=== PATIENT | female | born 1940 | race Asian ===

== ENCOUNTER 2016-07-05 10:15 | Emergency (ER) | payer OTHER ==
[2016-07-05 10:57] VITALS: BP 145/84; PULSE 60; TEMP 98
[2016-07-05] MEDS ORDERED: ACETAMINOPHEN 325 MG TABLET (FP) PO ONE (12:10)
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
[2016-07-05] MEDS ORDERED: ACETAMINOPHEN 325 MG TABLET (FP) ONE (12:17)
== END 2016-07-05 12:23 | disposition home or self-care (01) ==
LOC: JERFT 10:15
DX: S13.4XXA Sprain of ligaments of cervical spine, initial encounter (principal); I10 Essential (primary) hypertension; V53.6XXA Passenger in pick-up truck or van injured in collision with car, pick-up truck or van in traffic accident, initial encounter; Y92.414 Local residential or business street as the place of occurrence of the external cause; Y93.89 Activity, other specified
CPT/HCPCS: 99281-25

== ENCOUNTER 2016-10-14 07:59 | Inpatient (IN) | payer OTHER ==
[2016-10-14 08:36] VITALS: BMI 28.3
[2016-10-14] MEDS ORDERED: ACETAMINOPHEN 325 MG TABLET (FP) PO ONE (09:12)
[2016-10-14] MEDS ORDERED: ALBUTEROL SO4 2.5/IPRATROPIUM 0.5 INH SOL 3 ML VIAL.NEB. NEB ONE ×4 (09:15→15:26)
--- NOTE | 2016-10-14 09:15 | PDOC ---
History of Present Illness - General Chief Complaint: Respiratory Stated Complaint: COLD SYMPTOMS Time Seen by Provider: 10/14/16 08:28 History Source: Patient Exam Limitations: No Limitations - History of Present Illness Initial Comments: 10/14/16 11:5 My Chief Complaint: nasal congestion, runny nose, cough, intermittent shortness of breath History of Present Illness: Pt. is a 76 y/o female with h/o glaucoma, htn, and hyyperlipidemia brought here by EMS due to nasal congestion with productive cough for pt. is unsure of time but thinks it is over one week. She also report some shortness of breath with ambulation. Patient denies any sore throat. Patient denies any other symptoms at this time. Patient is Romansh speaking only have to use medical interpreter line medical interpreter [id number]. Patient is difficult to use the translation line due to patient having hearing loss even with hearing aid in left ear. Patient did not answer questions appropriately. Patient's daughter came patient's daughter explained that she was not confused just cannot hear well. PMX: glaucoma, hyperlipidemia, glaucoma, hearing loss hearing aid left ear Family Hx: not know Social Hx: lives alone, family is involved, daughter Angie Ge [phone] was here earlier Surgical Hx: none known by daughter 10/14/16 12:11 10/14/16 13:04 10/14/16 13:05 10/14/16 13:38 10/14/16 14:02 Timing/Duration: getting worse (unsure how long symptoms have been ) Severity: mild Associated Symptoms: reports: cough (productive unsure of color ), shortness of breath (unsure of timing ) Past History - Past Medical History Allergies/Adverse Reactions: Allergies Allergy/AdvReac Type Severity Reaction Status Date / Time No Known Allergies Allergy Verified 10/14/16 08:26 Home Medications: Ambulatory Orders Aspirin Coated [Ecotrin -] 81 mg PO DAILY 10/14/16 Cholecalciferol (Vitamin D3) [Vitamin D3 -] 1,000 unit PO DAILY 10/14/16 Loratadine [Claritin] 10 mg PO HS 10/14/16 Sennosides [Senna] 2 tab PO HS PRN 10/14/16 Simvastatin 40 mg PO HS 10/14/16 Timolol 0.5% [Timoptic 0.5%] 1 drop OU BID 10/14/16 Valsartan [Diovan] 160 mg PO DAILY 10/14/16 HTN: Yes - Psycho/Social/Smoking Cessation Hx Anxiety: No Suicidal Ideation: No Smoking History: Never smoked Have you smoked in the past 12 months: No Information on smoking cessation initiated: No Hx Alcohol Use: No Drug/Substance Use Hx: No Substance Use Type: None Review of Systems - Review of Systems Able to Perform ROS?: Yes Constitutional: No: Symptoms Reported HEENTM: Yes: Nose Congestion Respiratory: Yes: Shortness of Breath, Productive cough Cardiac (ROS): No: Symptoms Reported ABD/GI: No: Symptoms Reported : No: Symptoms Reported Musculoskeletal: No: Symptoms Reported Integumentary: No: Symptoms Reported Neurological: No: Symptoms reported *Physical Exam - Vital Signs Last Vital Signs Temp Pulse Resp BP Pulse Ox 100.8 F H 103 H 20 132/81 95 10/14/16 09:04 10/14/16 08:27 10/14/16 08:27 10/14/16 08:27 10/14/16 08:27 - Physical Exam General Appearance: Yes: Appropriately Dressed HEENT: positive: TMs Normal, Pharyngeal Erythema, Tonsillar Erythema (with no uvular deviation), Nasal Congestion. negative: Tonsillar Exudate Neck: negative: Lymphadenopathy (R), Lymphadenopathy (L) Respiratory/Chest: positive: Respiratory Distress, Rhonchi (b/l ), Wheezing (b/ l expiratory). negative: Accessory Muscle Use Cardiovascular: positive: Regular Rhythm, Regular Rate, S1, S2 Integumentary: positive: Normal Color Neurologic: positive: Normal Response, Responsive Heart Score/ECG Review - ECG Impressions Comment:: 10/14/16 13:[address] Hollis normal sinus rhythm ventricular rate 97 bpm MS interval 182 and S, QRS duration 80 and S, QT/QTC 352/447 ms, P-R-T axes 20 -38 7 10/14/16 20:24 ED Treatment Course - LABORATORY CBC & Chemistry Diagram: 10/17/16 05:35 10/17/16 05:35 Medical Decision Making - Medical Decision Making 10/14/16 12:13 Pt. is a 76 y/o female with h/o glaucoma, htn, and hyyperlipidemia brought here by EMS due to nasal congestion with productive cough for pt. is unsure of time but thinks it is over one week. She also report some shortness of breath with ambulation. Patient denies any sore throat. Patient denies any other symptoms at this time. Patient is Romansh speaking only have to use medical interpreter line medical interpreter [id number]. Patient is difficult to use the translation line due to patient having hearing loss even with hearing aid in left ear. Patient did not answer questions appropriately. Patient's daughter came patient's daughter explained that she was not confused just cannot hear well. Rule out infiltrate Rule out strep throat Plan: CBC with differential CMP Urinalysis troponin lactic acid x-ray chest PA and lateral no evidence of vascular congestion. Increased interstitial markings noted in the bilateral lower lobes. No evidence of pulmonary consolidation within the limitation of examination DuoNeb now Throat C&S negative EKG REVIEWED BY DR. HOLLIS blood culture IV insert acetaminophen 650 mg po now 10/14/16 12:13 10/14/16 12:15 Laboratory Tests 10/14/16 10/14/16 10/14/16 09:47 09:47 09:47 WBC 7.7 RBC 3.32 L Hgb 11.1 Hct 32.7 MCV 98.4 H MCHC 34.0 RDW 12.6 Plt Count 173 MPV 7.6 Neutrophils % 70.9 Lymphocytes % 15.3 Monocytes % 11.3 H Eosinophils % 2.1 Basophils % 0.4 Sodium 139 Potassium 4.3 Chloride 103 Carbon Dioxide 28 Anion Gap 8 BUN 18 Creatinine 1.0 Creat Clearance w eGFR 53.62 Random Glucose 113 H Calcium 8.8 Total Bilirubin 0.6 AST 20 ALT 16 Alkaline Phosphatase 83 Creatine Kinase Troponin I Total Protein 7.2 Urine Color Ltyellow Urine Appearance Clear Urine pH 6.0 Ur Specific [place] Pending Urine Protein 2+ H Urine Glucose (UA) Negative Urine Ketones Negative Urine Blood 3+ H Urine Nitrite Negative Urine Bilirubin Negative Urine Urobilinogen Negative Ur Leukocyte Esterase Negative Urine RBC 66 Urine WBC 3 Hyaline Casts 1 Urine Mucus Rare 10/14/16 09:47 WBC RBC Hgb Hct MCV MCHC RDW Plt Count MPV Neutrophils % Lymphocytes % Monocytes % Eosinophils % Basophils % Sodium Potassium Chloride Carbon Dioxide Anion Gap BUN Creatinine Creat Clearance w eGFR Random Glucose Calcium Total Bilirubin AST ALT Alkaline Phosphatase Creatine Kinase 104 Troponin I < 0.02 Total Protein Urine Color Urine Appearance Urine pH Ur Specific [place] Urine Protein Urine Glucose (UA) Urine Ketones Urine Blood Urine Nitrite Urine Bilirubin Urine Urobilinogen Ur Leukocyte Esterase Urine RBC Urine WBC Hyaline Casts Urine Mucus 10/14/16 12:16 10/14/16 12:40 10/14/16 12:50 pulse ox at 92 lungs bilaterally crackles heard at bilateral face with slight expiratory wheeze Prednisone 60 mg by mouth now Levaquin 750 mg IV piggyback Patient to be admitted via hospitalist 10/14/16 13:00 10/14/16 13:39 10/14/16 14:05 10/14/16 20:23 10/14/16 20:24 10/17/16 13:28 Laboratory Tests 10/14/16 10/14/16 19:00 19:00 Lactic Acid 2.2 H* B-Natriuretic Peptide 321.14 10/17/16 13:29 10/17/16 13:30 *DC/Admit/Observation/Transfer Diagnosis at time of Disposition: Bronchitis, Hypoxia, Hematuria - Discharge Dispostion Condition at time of disposition: Stable Admit: Yes Decision to Admit order Date/Time: 10/14/16 14:35 10/14/16 14:37 - Referrals
[2016-10-14] MEDS ORDERED: ACETAMINOPHEN 325 MG TABLET (FP) ONE (09:33)
[2016-10-14] MEDS: SODIUM CHLORIDE 1,000 ML IV SCH ×2 (09:46→22:55)
[2016-10-14 09:57] LABS: URINE APPEARANCE CLEAR; URINE BILIRUBIN NEGATIVE (NEGATIVE); URINE COLOR LTYELLOW; URINE GLUCOSE (UA) NEGATIVE (NEGATIVE); URINE KETONE NEGATIVE (NEGATIVE); URINE LEUK ESTERASE NEGATIVE (NEGATIVE); URINE NITRITE NEGATIVE (NEGATIVE); URINE UROBILINOGEN NEGATIVE E.U./dl (0.2-1.0)
[2016-10-14 09:59] LABS: URINE BLOOD 3+ (NEGATIVE); URINE PROTEIN 2+ (NEGATIVE)
[2016-10-14 10:01] LABS: BASOPHIL 0.4 % (0-2.0); EOSINOPHIL 2.1 % (0-4.5); MCH 33.4 pg (25.7-33.7); MEAN CELL VOLUME 98.4 fl (80-96); MEAN PLT VOLUME 7.6 fl (7.5-11.1); NEUTROPHILS 70.9 % (42.8-82.8); PLATELET COUNT 173 K/MM3 (134-434); RDW 12.6 % (11.6-15.6); URINE HYALINE CAST 1 /lpf; URINE MUCUS RARE; URINE RBC 66 /hpf (0-3); URINE WBC 3 /hpf (3-5); WHITE BLOOD COUNT 7.7 K/mm3 (4.0-10.0)
[2016-10-14 10:29] LABS: ALBUMIN 2.9 g/dl (3.4-5.0); CALCIUM 8.8 mg/dL (8.5-10.1); COCKROFT - GAULT 46.478
[2016-10-14 10:31] LABS: BILIRUBIN,TOTAL 0.6 mg/dL (0.2-1.0); TOT PROT 7.2 g/dl (6.4-8.2)
[2016-10-14 10:32] LABS: TROPONIN I < 0.02 ng/ml (0.00-0.05)
--- NOTE | 2016-10-14 11:29 | PDOC ---
*Physical Exam - Vital Signs Last Vital Signs Temp Pulse Resp BP Pulse Ox 100.8 F H 103 H 20 132/81 95 10/14/16 09:04 10/14/16 08:27 10/14/16 08:27 10/14/16 08:27 10/14/16 08:27 ED Treatment Course - LABORATORY CBC & Chemistry Diagram: 10/14/16 09:47 10/14/16 09:47 - ADDITIONAL ORDERS Additional order review: Laboratory Results 10/14/16 10/14/16 10/14/16 09:47 09:47 09:47 Sodium 139 Potassium 4.3 Chloride 103 Carbon Dioxide 28 Anion Gap 8 BUN 18 Creatinine 1.0 Creat Clearance w eGFR 53.62 Random Glucose 113 H Calcium 8.8 Total Bilirubin 0.6 AST 20 ALT 16 Alkaline Phosphatase 83 Creatine Kinase 104 Troponin I < 0.02 Total Protein 7.2 Albumin 2.9 L Urine Color Ltyellow Urine Appearance Clear Urine pH 6.0 Urine Protein 2+ H Urine Glucose (UA) Negative Urine Ketones Negative Urine Blood 3+ H Urine Nitrite Negative Urine Bilirubin Negative Urine Urobilinogen Negative Ur Leukocyte Esterase Negative Urine RBC 66 Urine WBC 3 Hyaline Casts 1 Urine Mucus Rare 10/14/16 09:30 Group A Strep Rapid Antigen - Final Throat 10/14/16 09:47 RBC 3.32 L MCV 98.4 H MCHC 34.0 RDW 12.6 MPV 7.6 Neutrophils % 70.9 Lymphocytes % 15.3 Monocytes % 11.3 H Eosinophils % 2.1 Basophils % 0.4 - Medications Given in the ED: ED Medications Discontinued Medications Generic Name Dose Route Start Last Admin Trade Name Brenda PRN Reason Stop Dose Admin Acetaminophen 650 mg 10/14/16 09:12 10/14/16 09:46 Tylenol - PO 10/14/16 09:13 650 mg ONCE ONE Administration Albuterol/Ipratropium 1 amp 10/14/16 09:15 10/14/16 09:46 Duoneb - NEB 10/14/16 09:16 1 amp ONCE ONE Administration Medical Decision Making - Medical Decision Making 10/14/16 11:28 Pt seen by the Advanced Practice Provider under my direct supervision Ancillary studies reviewed I agree with plan as outlined by the Advanced Practice Provider ROBINSON Wake[place] *DC/Admit/Observation/Transfer Diagnosis at time of Disposition: Bronchitis, Hypoxia, Hematuria - Discharge Dispostion Condition at time of disposition: Stable
[2016-10-14] MEDS ORDERED: ALBUTEROL SO4 0.083% IH SOL 2.5 MG/3 ML VIAL.NEB. NEB ONE ×2 (12:46→12:53)
[2016-10-14] MEDS ORDERED: predniSONE 20 MG TABLET (UD) PO ONE (12:46)
[2016-10-14] MEDS ORDERED: LEVOFLOXACIN 750 MG IVPB 150 ML IVPB ONE ×2 (12:48→12:53)
--- NOTE | 2016-10-14 12:51 | EKG ---
Test Reason : Blood Pressure : / mmHG Vent. Rate : 097 BPM Atrial Rate : 097 BPM P-R Int : 182 ms QRS Dur : 080 ms QT Int : 352 ms P-R-T Axes : 020 -38 007 degrees QTc Int : 447 ms NORMAL SINUS RHYTHM LEFT AXIS DEVIATION ABNORMAL ECG NO PREVIOUS ECGS AVAILABLE Confirmed by COLIN ALARCON, ANNIE ([id number]) on 10/14/2016 12:50:40 PM Referred By: Confirmed By:ANNIE SHAW MD
[2016-10-14] MEDS ORDERED: predniSONE 20 MG TABLET (UD) ONE (12:52)
--- NOTE | 2016-10-14 15:21 | HP ---
CHIEF COMPLAINT: intermittent SOB, rhinorrhea PCP: HISTORY OF PRESENT ILLNESS: This is a 76yo Amharic speaking woman with PMH of HTN , HLD and glaucoma who presents for care with intermittent SOB and rhinorrhea starting this morning. She endorses a cough with beige sputum for an unspecified amount of time. Denies decrease in exercise tolerance, fevers, chest pain, nausea, vomiting, dizziness or lightheadedness. Assessment completed with assistance of telephone records and tape recordings engineer #[id number]. ER course was notable for: (1) hypoxia on RA (2) microscopic hematuria (3) negative rapid strep Recent Travel: denies PAST MEDICAL HISTORY: HTN, glaucoma, HLD PAST SURGICAL HISTORY: denies Social History: Smoking: denies Alcohol: denies Drugs: denies Family History: Allergies No Known Allergies Allergy (Verified 10/14/16 08:26) HOME MEDICATIONS: Home Medications 3 Medication Instructions Recorded Aspirin Coated [Ecotrin -] 81 mg PO DAILY 10/14/16 Cholecalciferol (Vitamin D3) 1,000 unit PO DAILY 10/14/16 [Vitamin D3 -] Loratadine [Claritin] 10 mg PO HS 10/14/16 Sennosides [Senna] 2 tab PO HS PRN 10/14/16 Simvastatin 40 mg PO HS 10/14/16 Timolol 0.5% [Timoptic 0.5%] 1 drop OU BID 10/14/16 Valsartan [Diovan] 160 mg PO DAILY 10/14/16 REVIEW OF SYSTEMS CONSTITUTIONAL: Absent: fever, chills, diaphoresis, generalized weakness, malaise, loss of appetite, weight change HEENT: Present: rhinorrhea, nasal congestion Absent: throat pain, throat swelling, difficulty swallowing, mouth swelling, ear pain, eye pain, visual changes CARDIOVASCULAR: Absent: chest pain, syncope, palpitations, irregular heart rate, lightheadedness , peripheral edema RESPIRATORY: Present: productive cough with beige sputum, intermittent shortness of breath Absent: dyspnea with exertion, orthopnea, wheezing, stridor, hemoptysis GASTROINTESTINAL: Absent: abdominal pain, abdominal distension, nausea, vomiting, diarrhea, constipation, melena, hematochezia GENITOURINARY: Absent: dysuria, frequency, urgency, hesitancy, hematuria, flank pain, genital pain MUSCULOSKELETAL: Absent: myalgia, arthralgia, joint swelling, back pain, neck pain SKIN: Absent: rash, itching, pallor HEMATOLOGIC/IMMUNOLOGIC: Absent: easy bleeding, easy bruising, lymphadenopathy, frequent infections ENDOCRINE: Absent: unexplained weight gain, unexplained weight loss, heat intolerance, cold intolerance NEUROLOGIC: Absent: headache, focal weakness or paresthesias, dizziness, unsteady gait, seizure, mental status changes, bladder or bowel incontinence PSYCHIATRIC: Absent: anxiety, depression, suicidal or homicidal ideation, hallucinations. PHYSICAL EXAMINATION Vital Signs - 24 hr 3 10/14/16 14:53 O2 Sat by Pulse 92 L Oximetry (%) GENERAL: Awake, alert, and fully oriented, in no acute distress. HEAD: Normal with no signs of trauma. EYES: Pupils equal, round and reactive to light, extraocular movements intact, sclera anicteric, conjunctiva clear. No lid lag. EARS, NOSE, THROAT: Ears normal, nares patent, oropharynx clear without exudates. Moist mucous membranes. NECK: Normal range of motion, supple without lymphadenopathy, JVD, or masses. LUNGS: Breath sounds equal, clear to auscultation bilaterally. No crackles. Diffuse wheezes noted. No accessory muscle use. HEART: Regular rate and rhythm, normal S1 and S2 without murmur, rub or gallop. ABDOMEN: Soft, nontender, not distended, normoactive bowel sounds, no guarding, no rebound, no masses. No hepatomegaly or splenomegaly. MUSCULOSKELETAL: Normal range of motion at all joints. No bony deformities or tenderness. No CVA tenderness. UPPER EXTREMITIES: 2+ pulses, warm, well-perfused. No cyanosis. No clubbing. No peripheral edema. LOWER EXTREMITIES: 2+ pulses, warm, well-perfused. No calf tenderness. No peripheral edema. NEUROLOGICAL: Cranial nerves II-XII intact. Normal speech. Normal gait. PSYCHIATRIC: Cooperative. Good eye contact. Appropriate mood and affect. SKIN: Warm, dry, normal turgor, no rashes or lesions noted, normal capillary refill. Imaging: CXR as read by Dr. Batista- Increased interstitial markings without evidence of pulmonary disease. No evidence of vascular congestion. ASSESSMENT/PLAN: A: 76 yo woman with cough, fevers and tachycardia. She denies SOB presently but remains hypoxic on room air. CTA to r/o PE. Will r/o ACS with troponins. HF less likely as no congestion on CXR, JVD or peripheral edema. Lactic acid for occult sepsis. P: 1. Hypoxia- Early CAP vs PE vs HF vs sepsis - CTA- pending - BNP, lactic acid - serial troponins - Duoneb q4 prn - O2 titrate to maintain Spo2>94% - prednisone 40mg daily - Levaquin 750mg IV daily 2. Fever - trend WBC - trend fever curve - Levaquin for early CAP - blood and urine cx pending 3. Microscopic hematuria - repeat UA prior to discharge 4. HTN - continue Valsartan 160mg 5. Glaucoma - Timolol 0.5% 6. HLD - Zocor 40mg 7. F/E/N - regular diet - replete prn 8. PPX - OOB - Lovenox Dispo- requires observation for acute medical condition Code Status- FULL CODE Visit type - Emergency Visit Emergency Visit: Yes ED Registration Date: 10/14/16 Care time: The patient presented to the Emergency Department on the above date and was hospitalized for further evaluation of their emergent condition. - New Patient This patient is new to me today: Yes Date on this admission: 10/14/16 - Critical Care Critical Care patient: No
[2016-10-14] MEDS: LORATADINE 10 MG TABLET PO SCH (22:55)
[2016-10-14] MEDS: TIMOLOL 0.5% OPHTHALMIC SOL 5 ML BOTTLE OU SCH (22:55)
[2016-10-14] MEDS: ATORVASTATIN CA 20 MG TABLET (FP) PO SCH (22:55)
[2016-10-15] MEDS ORDERED: guaiFENesin 200 MG/10 ML 10 ML UNIT-DOSE CUPS PO PRN (01:22)
[2016-10-15] MEDS ORDERED: ACETAMINOPHEN 325 MG TABLET (FP) PO PRN (01:23)
[2016-10-15] MEDS ORDERED: LEVOFLOXACIN 750 MG IVPB 150 ML IVPB SCH (08:15)
[2016-10-15 08:23] LABS: BASOPHIL 0.2 % (0-2.0); MCH 33.1 pg (25.7-33.7); MCHC 34.2 g/dl (32.0-36.0); MEAN CELL VOLUME 96.8 fl (80-96); MEAN PLT VOLUME 7.7 fl (7.5-11.1); NEUTROPHILS 81.8 % (42.8-82.8); PLATELET COUNT 179 K/MM3 (134-434); RDW 12.5 % (11.6-15.6); WHITE BLOOD COUNT 8.7 K/mm3 (4.0-10.0)
[2016-10-15 08:55] LABS: CALCIUM 8.3 mg/dL (8.5-10.1); COCKROFT - GAULT 66.3935; CREATININE 0.7 mg/dL (0.55-1.02)
[2016-10-15] MEDS ORDERED: methylPREDNISolone NA SUCC 40 MG/1 ML VIAL IVPB SCH (10:45)
[2016-10-15] MEDS: ENOXAPARIN NA (PORCINE) 40 MG/0.4 ML DISP.SYRIN SQ SCH (10:57)
[2016-10-15] MEDS: VALSARTAN 160 MG TABLET (UD) PO SCH (10:58)
[2016-10-15] MEDS: LEVOFLOXACIN 250 MG IVPB 50 ML IVPB SCH (10:58)
[2016-10-15] MEDS: ASPIRIN COATED 81 MG TABLET.EC PO SCH (10:58)
[2016-10-15] MEDS: CHOLECALCIFEROL (VITAMIN D3) 1,000 UNIT TABLET (FP) PO SCH (10:58)
[2016-10-15] MEDS: TIMOLOL 0.5% OPHTHALMIC SOL 5 ML BOTTLE OU SCH ×2 (10:59→21:36)
[2016-10-15] MEDS ORDERED: PT OWN MED DRAWER 7, Y5N ONE (11:06)
--- NOTE | 2016-10-15 11:22 | CON.CARD ---
Consult Consult Specialty:: Cardiology Referred by:: Hospitalist Medicine Reason for Consultation:: Dyspnea - History of Present Illness Chief Complaint: Cough, wheeze, dyspnea on exertion History of Present Illness: Pt. is a 76 y/o female with h/o glaucoma, htn, and hyyperlipidemia brought here by EMS due to nasal congestion, rhinnorhea with productive cough, low grade fevers and mild shortness of breath with ambulation. History obtained with daughter assistance, denies associated orthopnea, PND, LE edema, palpitations, near or true syncope. PMX: glaucoma, hyperlipidemia, glaucoma, hearing loss hearing aid left ear Family Hx: not know Social Hx: lives alone, family is involved, daughter Angie Ge [phone] was here earlier Surgical Hx: none known by daughter - History Source History Provided By: Patient - Alcohol/Substance Use Hx Alcohol Use: No - Smoking History Smoking history: Never smoked Have you smoked in the past 12 months: No Home Medications - Allergies Allergies/Adverse Reactions: Allergies Allergy/AdvReac Type Severity Reaction Status Date / Time No Known Allergies Allergy Verified 10/14/16 08:26 - Home Medications Home Medications: Ambulatory Orders Aspirin Coated [Ecotrin -] 81 mg PO DAILY 10/14/16 Cholecalciferol (Vitamin D3) [Vitamin D3 -] 1,000 unit PO DAILY 10/14/16 Loratadine [Claritin] 10 mg PO HS 10/14/16 Sennosides [Senna] 2 tab PO HS PRN 10/14/16 Simvastatin 40 mg PO HS 10/14/16 Timolol 0.5% [Timoptic 0.5%] 1 drop OU BID 10/14/16 Valsartan [Diovan] 160 mg PO DAILY 10/14/16 Review of Systems - Review of Systems Cardiovascular: reports: Shortness of Breath Respiratory: reports: Cough, SOB on Exertion, Wheezing Vital Signs: Vital Signs Temperature 98.3 F 10/15/16 06:00 Pulse Rate 79 10/15/16 06:00 Respiratory Rate 20 10/15/16 06:00 Blood Pressure 121/74 10/15/16 06:00 O2 Sat by Pulse Oximetry (%) 98 10/14/16 21:30 Constitutional: Yes: No Distress, Calm Neck: Yes: Supple Respiratory: Yes: Regular, Cough, Diminished, Wheezes Gastrointestinal: Yes: Normal Bowel Sounds, Soft Cardiovascular: Yes: Regular Rate and Rhythm JVD: No Carotid Bruit: No Heart Sounds: Yes: S1, S2 Edema: No - Other Data Labs, Other Data: CBC, BMP 10/15/16 05:48 10/15/16 05:48 Troponin, BNP 10/14/16 10/14/16 10/15/16 19:00 19:00 05:48 Troponin I < 0.02 < 0.02 B-Natriuretic Peptide 321.14 Troponin, BNP 10/14/16 10/14/16 10/15/16 19:00 19:00 05:48 Troponin I < 0.02 < 0.02 B-Natriuretic Peptide 321.14 NSR @ 97 LAD Imaging - Results Cat Scan: Report Reviewed (Chest CT: 4.3 cm TAA, bilateral upper and lower R>L infiltrates, ATX) Problem List - Problems (1) Community acquired bacterial pneumonia Code(s): J15.9 - UNSPECIFIED BACTERIAL PNEUMONIA (2) Hypertension Code(s): I10 - ESSENTIAL (PRIMARY) HYPERTENSION Qualifiers: Hypertension type: essential hypertension Qualified Code(s): I10 - Essential (primary) hypertension (3) Hyperlipidemia Code(s): E78.5 - HYPERLIPIDEMIA, UNSPECIFIED Qualifiers: Hyperlipidemia type: pure hypercholesterolemia Qualified Code(s): E78.00 - Pure hypercholesterolemia, unspecified; E78.0 - Pure hypercholesterolemia (4) Acute and chronic respiratory failure with hypoxia Code(s): J96.21 - ACUTE AND CHRONIC RESPIRATORY FAILURE WITH HYPOXIA (5) Acute bronchitis Code(s): J20.9 - ACUTE BRONCHITIS, UNSPECIFIED Qualifiers: Bronchitis organism: unspecified organism Qualified Code(s): J20.9 - Acute bronchitis, unspecified (6) Thoracic aortic aneurysm Code(s): I71.2 - THORACIC AORTIC ANEURYSM, WITHOUT RUPTURE Qualifiers: Presence of rupture: without rupture Qualified Code(s): I71.2 - Thoracic aortic aneurysm, without rupture Assessment/Plan 1. Acute hypoxic respiratory failure referable to CAP, acute bronchitis, ruled out for PE 2. 4.3 cm TAA 3. HTN 4. Hyperlipidemia P:1. Ruled out for AK 2. BD, abx course f/u C&S, steroids, O2 to maintain saO2 3. Continue ASA 81 qd, Diovan 160 qd, Lipitor 20 qhs 4. DVT and GI prophylaxis 5. Outpatient surveillance of TAA 6. Thank you for consultative opportunity
--- NOTE | 2016-10-15 13:06 | CON.PULM ---
Consult Consult Specialty:: PULM/CCM Referred by:: PMD Reason for Consultation:: PNA - History of Present Illness Chief Complaint: SOB History of Present Illness: 76 F, Syriac speaking. PMH of HTN, HLD and glaucoma. No known history of asthma, COPD, or chronic respiratory illness. Admitted via the ER due to SOB, productive cough, and rhinorrhea of 1 days duration. History is limited due to language barrier and hearing impairment. No travel history or sick contacts. No hemoptysis. CT : gross cardiomegaly / bilateral scattered infiltrates - History Source History Provided By: Medical Record Limitations to Obtaining History: Language Barrier - Alcohol/Substance Use Hx Alcohol Use: No - Smoking History Smoking history: Never smoked Have you smoked in the past 12 months: No Home Medications - Allergies Allergies/Adverse Reactions: Allergies Allergy/AdvReac Type Severity Reaction Status Date / Time No Known Allergies Allergy Verified 10/14/16 08:26 - Home Medications Home Medications: Ambulatory Orders Aspirin Coated [Ecotrin -] 81 mg PO DAILY 10/14/16 Cholecalciferol (Vitamin D3) [Vitamin D3 -] 1,000 unit PO DAILY 10/14/16 Loratadine [Claritin] 10 mg PO HS 10/14/16 Sennosides [Senna] 2 tab PO HS PRN 10/14/16 Simvastatin 40 mg PO HS 10/14/16 Timolol 0.5% [Timoptic 0.5%] 1 drop OU BID 10/14/16 Valsartan [Diovan] 160 mg PO DAILY 10/14/16 Review of Systems - Review of Systems Constitutional: denies: Chills, Fever, Night Sweats Eyes: reports: No Symptoms HENT: reports: Nasal Congestion Neck: reports: No Symptoms Cardiovascular: reports: Shortness of Breath. denies: Chest Pain, Edema Respiratory: reports: Cough, SOB. denies: Hemoptysis, Wheezing Gastrointestinal: reports: No Symptoms Genitourinary: reports: No Symptoms Breasts: reports: No Symptoms Reported Musculoskeletal: reports: No Symptoms Integumentary: reports: No Symptoms Neurological: reports: No Symptoms Endocrine: reports: No Symptoms Hematology/Lymphatic: reports: No Symptoms Psychiatric: reports: No Symptoms Physical Exam Vital Sings: Vital Signs Temperature 98.3 F 10/15/16 06:00 Pulse Rate 79 10/15/16 06:00 Respiratory Rate 20 10/15/16 06:00 Blood Pressure 121/74 10/15/16 06:00 O2 Sat by Pulse Oximetry (%) 98 10/14/16 21:30 Constitutional: Yes: No Distress, Calm Eyes: Yes: Conjunctiva Clear, EOM Intact HENT: Yes: Atraumatic, Normocephalic Neck: Yes: Supple, Trachea Midline Cardiovascular: Yes: Regular Rate and Rhythm Respiratory: Yes: Cough, Rhonchi. No: Accessory Muscle Use, Rales, SOB, Stridor , Tachypnea, Wheezes ...Inspection: Yes: WNL ...Clubbing: No Gastrointestinal: Yes: Normal Bowel Sounds, Soft Renal/: Yes: WNL Musculoskeletal: Yes: WNL Extremities: Yes: WNL Edema: No Peripheral Pulses WNL: Yes Integumentary: Yes: WNL Neurological: Yes: WNL, Alert, Oriented ...Motor Strength: WNL Psychiatric: Yes: WNL, Alert, Oriented Labs: CBC, BMP 10/15/16 05:48 10/15/16 05:48 Imaging - Results Chest X-ray: Report Reviewed, Image Reviewed Cat Scan: Report Reviewed, Image Reviewed Problem List - Problems (1) Acute bronchitis Code(s): J20.9 - ACUTE BRONCHITIS, UNSPECIFIED Qualifiers: Bronchitis organism: unspecified organism Qualified Code(s): J20.9 - Acute bronchitis, unspecified (2) Community acquired bacterial pneumonia Code(s): J15.9 - UNSPECIFIED BACTERIAL PNEUMONIA (3) Hyperlipidemia Code(s): E78.5 - HYPERLIPIDEMIA, UNSPECIFIED Qualifiers: Hyperlipidemia type: pure hypercholesterolemia Qualified Code(s): E78.00 - Pure hypercholesterolemia, unspecified; E78.0 - Pure hypercholesterolemia (4) Hypertension Code(s): I10 - ESSENTIAL (PRIMARY) HYPERTENSION Qualifiers: Hypertension type: essential hypertension Qualified Code(s): I10 - Essential (primary) hypertension (5) Hypoxia Code(s): R09.02 - HYPOXEMIA (6) Thoracic aortic aneurysm Code(s): I71.2 - THORACIC AORTIC ANEURYSM, WITHOUT RUPTURE Qualifiers: Presence of rupture: without rupture Qualified Code(s): I71.2 - Thoracic aortic aneurysm, without rupture Assessment/Plan Agree with ABX O2 as needed Daily Medrol Check sputum Urinary antigen Should repeat CT in 6 weeks to document resolution of changes -> difficult to determine if there a component of chronicity VTE prophylaxis Will follow Thank you. Dr Vaughan
--- NOTE | 2016-10-15 15:04 | PN ---
Physical Exam: SUBJECTIVE: Patient seen and examined with her daughter at the bedside. OBJECTIVE: D Dimer elevated @792, Chest TYPE INSPECTOR negative for PE Vital Signs Period Temp Pulse Resp BP Sys/Azar Pulse Ox Last 24 Hr 97.3 F-98.6 F 73-89 17-20 108-141/45-84 95-98 GENERAL: The patient is awake, alert, and fully oriented, in mild respiratory distress. HEAD: Normal with no signs of trauma. EYES: PERRL, extraocular movements intact, sclera anicteric, conjunctiva clear. No ptosis. ENT: Ears normal, nares patent, oropharynx clear without exudates, moist mucous membranes. NECK: Trachea midline, full range of motion, supple. LUNGS: + scattered rhonchi auscultated, dyspnea with exertion ABDOMEN: Soft, nontender, nondistended, normoactive bowel sounds, no guarding, no EXTREMITIES: no edema. NEUROLOGICAL: Normal speech, gait not observed. PSYCH: Normal mood, normal affect. SKIN: Warm, dry, normal turgor, no rashes or lesions noted Laboratory Results - last 24 hr 10/14/16 10/14/16 10/14/16 19:00 19:00 19:00 WBC RBC Hgb Hct MCV MCHC RDW Plt Count MPV Neutrophils % Lymphocytes % Monocytes % Eosinophils % Basophils % D-Dimer Sodium Potassium Chloride Carbon Dioxide Anion Gap BUN Creatinine Random Glucose Lactic Acid 2.2 H* Calcium Troponin I < 0.02 B-Natriuretic Peptide 321.14 10/15/16 10/15/16 10/15/16 05:35 05:48 05:48 WBC 8.7 RBC 3.15 L Hgb 10.4 L Hct 30.5 L MCV 96.8 H MCHC 34.2 RDW 12.5 Plt Count 179 MPV 7.7 Neutrophils % 81.8 Lymphocytes % 11.2 D Monocytes % 6.8 Eosinophils % 0.0 D Basophils % 0.2 D-Dimer 792 H Sodium 142 Potassium 4.4 Chloride 106 Carbon Dioxide 28 Anion Gap 8 BUN 17 Creatinine 0.7 D Random Glucose 109 H Lactic Acid Calcium 8.3 L Troponin I B-Natriuretic Peptide 10/15/16 10/15/16 05:48 08:10 WBC RBC Hgb Hct MCV MCHC RDW Plt Count MPV Neutrophils % Lymphocytes % Monocytes % Eosinophils % Basophils % D-Dimer Sodium Potassium Chloride Carbon Dioxide Anion Gap BUN Creatinine Random Glucose Lactic Acid 1.4 Calcium Troponin I < 0.02 B-Natriuretic Peptide Active Medications Generic Name Dose Route Start Last Admin Trade Name Freq PRN Reason Stop Dose Admin Acetaminophen 650 mg 10/15/16 01:23 Tylenol - PO Q6H PRN FEVER OR PAIN Aspirin 81 mg 10/15/16 10:00 10/15/16 10:58 Ecotrin - PO 81 mg DAILY DIOGENES Administration Atorvastatin Calcium 20 mg 10/14/16 22:00 10/14/16 22:55 Lipitor - PO 20 mg HS DIOGENES Administration Cholecalciferol 1,000 unit 10/15/16 10:00 10/15/16 10:58 Vitamin D3 - PO 1,000 unit DAILY DIOGENES Administration Enoxaparin Sodium 40 mg 10/15/16 10:00 10/15/16 10:57 Lovenox - SQ 40 mg DAILY DIOGENES Administration Guaifenesin 10 ml 10/15/16 01:22 10/15/16 01:54 Robitussin - PO 10 ml Q6H PRN Administration COUGH Sodium Chloride 1,000 mls @ 100 mls/hr 10/14/16 09:15 10/14/16 22:55 Normal Saline - IV 100 mls/hr ASDIR DIOGENES Administration Levofloxacin 50 mls @ 50 mls/hr 10/15/16 10:00 10/15/16 10:58 Levaquin 250 Mg Premixed Ivpb - IVPB 50 mls/hr DAILY DIOGENES Administration Loratadine 10 mg 10/14/16 22:00 10/14/16 22:55 Claritin - PO 10 mg HS DIOGENES Administration Methylprednisolone Sodium Succinate 40 mg 10/16/16 10:00 Solu-Medrol - IVPB DAILY DIOGENES Timolol Maleate 1 drop 10/14/16 22:00 10/15/16 10:59 Timoptic 0.5% OU 1 drop BID DIOGENES Administration Valsartan 160 mg 10/15/16 10:00 10/15/16 10:58 Diovan - PO 160 mg DAILY DIOGENES Administration ASSESSMENT/PLAN: Patient is a 76 year old female with a significant past medical history of hypertenstion, hyperlipidemia, [place] and glaucoma. She presented to the ER on with intermittent shortness of breath, non productive cough and tachycardia. Cardio/Pulmonary: Shortness of breath/Pneumonia/Acute hypoxic respiratory failure likely CAP vs. acute bronchitis, ruled out for PE Assessment/Plan: Chest CT 10/15/2016 bilateral upper lobe, right more than left and emilie. lower lobe right more than left atelectatic change and infiltrates Also incidental finding of aneurysmal dilatation of the ascending aorta measuring 4.3 cm in AP dimension will need outpatient follow-up CTA negative for PE Troponins negative x 3 Albuterol standing q4 Prednisone 40mg daily Oxygen @ 2 liters Monitor vitals, fever curve Blood and urine cultures pending Hypertension - chronic Assessment/Plan: continue Valsartan 160mg Hyperlipidemia Assessment/Plan: On Lipitor ID: Rule out Sepsis - acute Assessment/Plan: Lactic acidosis on admission with hypoxia and tachycardia Lactic acidosis now resolved, hypoxia treated with Solumedrol and oxygen @ 2liters, now with mild tachycardia On Levaquin 250mg daily Blood and urine cultures pending Monitor vitals Microscopic hematuria Assessment/Plan: repeat UA prior to discharge Await urine culture F.E.N. Fluids: tolerating PO Electrolytes: monitor Nutrition: low sodium Prophylaxis: DVT: Lovenox 40mg daily GI: deferred Disposition: Requires inpatient hospitalization. Full code. Will need outpatient follow up Chest CT scan as noted above. Visit type - Emergency Visit Emergency Visit: Yes ED Registration Date: 10/14/16 Care time: The patient presented to the Emergency Department on the above date and was hospitalized for further evaluation of their emergent condition. - New Patient This patient is new to me today: Yes Date on this admission: 10/15/16 - Critical Care Critical Care patient: No - Discharge Referral Referred to [facility] Med P.C.: No
[2016-10-15] MEDS: ATORVASTATIN CA 20 MG TABLET (FP) PO SCH (21:34)
[2016-10-15] MEDS: LORATADINE 10 MG TABLET PO SCH (21:34)
[2016-10-15] MEDS: ALBUTEROL SO4 2.5/IPRATROPIUM 0.5 INH SOL 3 ML VIAL.NEB. NEB SCH (22:00)
[2016-10-16] MEDS: ALBUTEROL SO4 2.5/IPRATROPIUM 0.5 INH SOL 3 ML VIAL.NEB. NEB SCH ×6 (06:45→21:35)
[2016-10-16 09:23] LABS: BASOPHIL 0.4 % (0-2.0); EOSINOPHIL 0.2 % (0-4.5); MCH 33.1 pg (25.7-33.7); MEAN CELL VOLUME 97.6 fl (80-96); MEAN PLT VOLUME 7.6 fl (7.5-11.1); NEUTROPHILS 77.5 % (42.8-82.8); PLATELET COUNT 234 K/MM3 (134-434); RDW 12.5 % (11.6-15.6); WHITE BLOOD COUNT 10.9 K/mm3 (4.0-10.0)
[2016-10-16] MEDS: ENOXAPARIN NA (PORCINE) 40 MG/0.4 ML DISP.SYRIN SQ SCH (10:06)
[2016-10-16] MEDS: methylPREDNISolone NA SUCC 40 MG/1 ML VIAL IVPB SCH (10:06)
[2016-10-16] MEDS: TIMOLOL 0.5% OPHTHALMIC SOL 5 ML BOTTLE OU SCH ×2 (10:07→21:33)
[2016-10-16] MEDS: CHOLECALCIFEROL (VITAMIN D3) 1,000 UNIT TABLET (FP) PO SCH (10:07)
[2016-10-16] MEDS: LEVOFLOXACIN 250 MG IVPB 50 ML IVPB SCH (10:07)
[2016-10-16] MEDS: ASPIRIN COATED 81 MG TABLET.EC PO SCH (10:07)
[2016-10-16] MEDS: VALSARTAN 160 MG TABLET (UD) PO SCH (10:07)
[2016-10-16 10:09] LABS: ALK PHOS 99 U/L (45-117); ANION GAP 8 (8-16); BILIRUBIN,TOTAL 0.3 mg/dL (0.2-1.0); CO2 30 mmol/L (21-32); CREATININE 1.1 mg/dL (0.55-1.02); GLUCOSE,RANDOM 97 mg/dL (74-106); SGOT/AST 67 U/L (15-37); SGPT/ALT 32 U/L (12-78); TOT PROT 7.8 g/dl (6.4-8.2)
--- NOTE | 2016-10-16 11:55 | PN ---
Progress Note, Physician History of Present Illness: Continues with productive cough and mild shortness of breath with ambulation. Remains afebrile. - Current Medication List Current Medications: Active Medications Acetaminophen (Tylenol -) 650 mg PO Q6H PRN PRN Reason: FEVER OR PAIN Albuterol/Ipratropium (Duoneb -) 1 amp NEB Q4HPO [facility] Last Admin: 10/16/16 10:30 Dose: 1 amp Aspirin (Ecotrin -) 81 mg PO DAILY [facility] Last Admin: 10/16/16 10:07 Dose: 81 mg Atorvastatin Calcium (Lipitor -) 20 mg PO HS [facility] Last Admin: 10/15/16 21:34 Dose: 20 mg Cholecalciferol (Vitamin D3 -) 1,000 unit PO DAILY [facility] Last Admin: 10/16/16 10:07 Dose: 1,000 unit Enoxaparin Sodium (Lovenox -) 40 mg SQ DAILY [facility] Last Admin: 10/16/16 10:06 Dose: 40 mg Guaifenesin (Robitussin -) 10 ml PO Q6H PRN PRN Reason: COUGH Last Admin: 10/15/16 01:54 Dose: 10 ml Levofloxacin (Levaquin 250 Mg Premixed Ivpb -) 50 mls @ 50 mls/hr IVPB DAILY [facility] Last Admin: 10/16/16 10:07 Dose: 50 mls/hr Loratadine (Claritin -) 10 mg PO HS [facility] Last Admin: 10/15/16 21:34 Dose: 10 mg Methylprednisolone Sodium Succinate (Solu-Medrol -) 40 mg IVPB DAILY [facility] Last Admin: 10/16/16 10:06 Dose: 40 mg Timolol Maleate (Timoptic 0.5%) 1 drop OU BID [facility] Last Admin: 10/16/16 10:07 Dose: 1 drop Valsartan (Diovan -) 160 mg PO DAILY [facility] Last Admin: 10/16/16 10:07 Dose: 160 mg - Objective Vital Signs: Vital Signs Temperature 97.5 F L 10/16/16 08:05 Pulse Rate 75 10/16/16 08:05 Respiratory Rate 18 10/16/16 08:05 Blood Pressure 134/79 10/16/16 08:05 O2 Sat by Pulse Oximetry (%) 98 10/16/16 06:48 Constitutional: Yes: No Distress, Calm Neck: Yes: Supple Cardiovascular: Yes: Regular Rate and Rhythm Respiratory: Yes: Regular, Diminished, On Nasal O2, SOB, Wheezes Gastrointestinal: Yes: Normal Bowel Sounds, Soft Edema: No Labs: CBC, BMP 10/16/16 08:50 10/16/16 08:50 - ....Imaging EKG: Report Reviewed (Tele: SR with PAC) Problem List - Problems (1) Community acquired bacterial pneumonia Code(s): J15.9 - UNSPECIFIED BACTERIAL PNEUMONIA (2) Hypertension Code(s): I10 - ESSENTIAL (PRIMARY) HYPERTENSION Qualifiers: Hypertension type: essential hypertension Qualified Code(s): I10 - Essential (primary) hypertension (3) Hyperlipidemia Code(s): E78.5 - HYPERLIPIDEMIA, UNSPECIFIED Qualifiers: Hyperlipidemia type: pure hypercholesterolemia Qualified Code(s): E78.00 - Pure hypercholesterolemia, unspecified; E78.0 - Pure hypercholesterolemia (4) Acute and chronic respiratory failure with hypoxia Code(s): J96.21 - ACUTE AND CHRONIC RESPIRATORY FAILURE WITH HYPOXIA (5) Acute bronchitis Code(s): J20.9 - ACUTE BRONCHITIS, UNSPECIFIED Qualifiers: Bronchitis organism: unspecified organism Qualified Code(s): J20.9 - Acute bronchitis, unspecified (6) Thoracic aortic aneurysm Code(s): I71.2 - THORACIC AORTIC ANEURYSM, WITHOUT RUPTURE Qualifiers: Presence of rupture: without rupture Qualified Code(s): I71.2 - Thoracic aortic aneurysm, without rupture Assessment/Plan 1. Acute hypoxic respiratory failure referable to CAP, acute bronchitis, ruled out for PE 2. 4.3 cm TAA 3. HTN 4. Hyperlipidemia P 1. BD, abx course f/u C&S, steroids, O2 to maintain saO2 2. Continue ASA 81 qd, Diovan 160 qd, Lipitor 20 qhs 3. DVT and GI prophylaxis, d/c telemetry 4. Outpatient surveillance of TAA
--- NOTE | 2016-10-16 12:00 | PN ---
Progress Note, Physician History of Present Illness: pulmonary alert,oob-chair,less dyspneic,+cough - Current Medication List Current Medications: Active Medications Acetaminophen (Tylenol -) 650 mg PO Q6H PRN PRN Reason: FEVER OR PAIN Albuterol/Ipratropium (Duoneb -) 1 amp NEB Q4HPO [facility] Last Admin: 10/16/16 10:30 Dose: 1 amp Aspirin (Ecotrin -) 81 mg PO DAILY [facility] Last Admin: 10/16/16 10:07 Dose: 81 mg Atorvastatin Calcium (Lipitor -) 20 mg PO HS [facility] Last Admin: 10/15/16 21:34 Dose: 20 mg Cholecalciferol (Vitamin D3 -) 1,000 unit PO DAILY [facility] Last Admin: 10/16/16 10:07 Dose: 1,000 unit Enoxaparin Sodium (Lovenox -) 40 mg SQ DAILY [facility] Last Admin: 10/16/16 10:06 Dose: 40 mg Guaifenesin (Robitussin -) 10 ml PO Q6H PRN PRN Reason: COUGH Last Admin: 10/15/16 01:54 Dose: 10 ml Levofloxacin (Levaquin 250 Mg Premixed Ivpb -) 50 mls @ 50 mls/hr IVPB DAILY [facility] Last Admin: 10/16/16 10:07 Dose: 50 mls/hr Loratadine (Claritin -) 10 mg PO HS [facility] Last Admin: 10/15/16 21:34 Dose: 10 mg Methylprednisolone Sodium Succinate (Solu-Medrol -) 40 mg IVPB DAILY [facility] Last Admin: 10/16/16 10:06 Dose: 40 mg Timolol Maleate (Timoptic 0.5%) 1 drop OU BID [facility] Last Admin: 10/16/16 10:07 Dose: 1 drop Valsartan (Diovan -) 160 mg PO DAILY [facility] Last Admin: 10/16/16 10:07 Dose: 160 mg - Objective Vital Signs: Vital Signs Temperature 97.5 F L 10/16/16 08:05 Pulse Rate 75 10/16/16 08:05 Respiratory Rate 18 10/16/16 08:05 Blood Pressure 134/79 10/16/16 08:05 O2 Sat by Pulse Oximetry (%) 98 10/16/16 06:48 Constitutional: Yes: Well Nourished, Calm Eyes: Yes: WNL HENT: Yes: WNL Neck: Yes: WNL Cardiovascular: Yes: Regular Rate and Rhythm, S1, S2 Respiratory: Yes: Rales (crackle 2/3 up on r) Gastrointestinal: Yes: Normal Bowel Sounds, Soft Extremities: Yes: WNL Edema: No Labs: CBC, BMP 10/16/16 08:50 10/16/16 08:50 Assessment/Plan Problem List - Problems (1) Acute bronchitis Code(s): J20.9 - ACUTE BRONCHITIS, UNSPECIFIED Qualifiers: Bronchitis organism: unspecified organism Qualified Code(s): J20.9 - Acute bronchitis, unspecified (2) Community acquired bacterial pneumonia Code(s): J15.9 - UNSPECIFIED BACTERIAL PNEUMONIA (3) Hyperlipidemia Code(s): E78.5 - HYPERLIPIDEMIA, UNSPECIFIED Qualifiers: Hyperlipidemia type: pure hypercholesterolemia Qualified Code(s): E78.00 - Pure hypercholesterolemia, unspecified; E78.0 - Pure hypercholesterolemia (4) Hypertension Code(s): I10 - ESSENTIAL (PRIMARY) HYPERTENSION Qualifiers: Hypertension type: essential hypertension Qualified Code(s): I10 - Essential (primary) hypertension (5) Hypoxia Code(s): R09.02 - HYPOXEMIA (6) Thoracic aortic aneurysm Code(s): I71.2 - THORACIC AORTIC ANEURYSM, WITHOUT RUPTURE Qualifiers: Presence of rupture: without rupture Qualified Code(s): I71.2 - Thoracic aortic aneurysm, without rupture Assessment/Plan continue ABX O2 as needed Medrol taper Should repeat CT in 6 weeks to document resolution of changes -> difficult to determine if there a component of chronicity VTE prophylaxis DR PRITCHETT
--- NOTE | 2016-10-16 17:05 | PN ---
Physical Exam: SUBJECTIVE: Patient seen and examined in no acute distress. Tolerating room air. OBJECTIVE: Sitting up in the chair, tolerating room air. Less shortness of breath GENERAL: The patient is awake, alert, and fully oriented, in mild respiratory distress. HEAD: Normal with no signs of trauma. EYES: PERRL, extraocular movements intact, sclera anicteric, conjunctiva clear. No ptosis. ENT: Ears normal, nares patent, oropharynx clear without exudates, moist mucous membranes. NECK: Trachea midline, full range of motion, supple. LUNGS: + scattered rhonchi auscultated, dyspnea with exertion ABDOMEN: Soft, nontender, nondistended, normoactive bowel sounds, no guarding, no EXTREMITIES: no edema. NEUROLOGICAL: Normal speech, gait not observed. PSYCH: Normal mood, normal affect. SKIN: Warm, dry, normal turgor, no rashes or lesions noted Active Medications Generic Name Dose Route Start Last Admin Trade Name Freq PRN Reason Stop Dose Admin Acetaminophen 650 mg 10/15/16 01:23 Tylenol - PO Q6H PRN FEVER OR PAIN Albuterol/Ipratropium 1 amp 10/15/16 22:00 10/16/16 17:01 Duoneb - NEB 1 amp Q4HPO DIOGENES Administration Aspirin 81 mg 10/15/16 10:00 10/16/16 10:07 Ecotrin - PO 81 mg DAILY DIOGENES Administration Atorvastatin Calcium 20 mg 10/14/16 22:00 10/15/16 21:34 Lipitor - PO 20 mg HS DIOGENES Administration Cholecalciferol 1,000 unit 10/15/16 10:00 10/16/16 10:07 Vitamin D3 - PO 1,000 unit DAILY DIOGENES Administration Enoxaparin Sodium 40 mg 10/15/16 10:00 10/16/16 10:06 Lovenox - SQ 40 mg DAILY DIOGENES Administration Guaifenesin 10 ml 10/15/16 01:22 10/15/16 01:54 Robitussin - PO 10 ml Q6H PRN Administration COUGH Levofloxacin 50 mls @ 50 mls/hr 10/15/16 10:00 10/16/16 10:07 Levaquin 250 Mg Premixed Ivpb - IVPB 50 mls/hr DAILY DIOGENES Administration Loratadine 10 mg 10/14/16 22:00 10/15/16 21:34 Claritin - PO 10 mg HS DIOGENES Administration Methylprednisolone Sodium Succinate 40 mg 10/16/16 10:00 10/16/16 10:06 Solu-Medrol - IVPB 40 mg DAILY DIOGENES Administration Timolol Maleate 1 drop 10/14/16 22:00 10/16/16 10:07 Timoptic 0.5% OU 1 drop BID DIOGENES Administration Valsartan 160 mg 10/15/16 10:00 10/16/16 10:07 Diovan - PO 160 mg DAILY DIOGENES Administration ASSESSMENT/PLAN: Patient is a 76 year old female with a significant past medical history of hypertension, hyperlipidemia, QUILEUTE and glaucoma. She presented to the ER on 10/14 with intermittent shortness of breath, non productive cough and tachycardia. Cardio/Pulmonary: Shortness of breath/Pneumonia/Acute hypoxic respiratory failure likely CAP vs. acute bronchitis, ruled out for PE Assessment/Plan: Chest CT 10/15/2016 bilateral upper lobe, right more than left and emilie. lower lobe right more than left atelectatic change and infiltrates Also incidental finding of aneurysmal dilatation of the ascending aorta measuring 4.3 cm in AP dimension -vascular consulted CTA negative for PE Troponins negative x 3 Albuterol standing q4 Prednisone 40mg daily Oxygen @ 2 liters prn Monitor vitals, fever curve Blood and urine cultures pending Hypertension - chronic Assessment/Plan: continue Valsartan 160mg Hyperlipidemia Assessment/Plan: On Lipitor ID: Rule out Sepsis - acute Assessment/Plan: Lactic acidosis on admission with hypoxia and tachycardia Lactic acidosis now resolved, hypoxia treated with Solumedrol and oxygen @2 liters, now with mild tachycardia On Levaquin 250mg IV daily Blood culture negative to date Urine culture contaminated, repeat ordered monitor vitals Microscopic hematuria Assessment/Plan: repeat UA prior to discharge Await urine culture F.E.N. Fluids: tolerating PO Electrolytes: monitor Nutrition: low sodium Prophylaxis: DVT: Lovenox 40mg daily GI: deferred Disposition: Requires inpatient hospitalization. Full code. Visit type - Emergency Visit Emergency Visit: Yes ED Registration Date: 10/16/16 Care time: The patient presented to the Emergency Department on the above date and was hospitalized for further evaluation of their emergent condition. - New Patient This patient is new to me today: No - Critical Care Critical Care patient: No - Discharge Referral Referred to [facility] No
--- NOTE | 2016-10-16 17:18 | PN ---
Progress Note (short form) - Note Progress Note: [facility] CTA chest reviewed. 4.3cm ascending aortic aneurysm. No need for surgery Pt needs to be followed by CT surgery as outpt aneurysm needs surveillance to see if its growing. Sesar Gavin DO
[2016-10-16] MEDS: ATORVASTATIN CA 20 MG TABLET (FP) PO SCH (21:33)
[2016-10-16] MEDS: LORATADINE 10 MG TABLET PO SCH (21:33)
[2016-10-17] MEDS: ALBUTEROL SO4 2.5/IPRATROPIUM 0.5 INH SOL 3 ML VIAL.NEB. NEB SCH ×6 (02:20→22:30)
[2016-10-17 07:54] LABS: BASOPHIL 0.5 % (0-2.0); EOSINOPHIL 0.8 % (0-4.5); MCH 33.6 pg (25.7-33.7); MCHC 34.9 g/dl (32.0-36.0); MEAN CELL VOLUME 96.4 fl (80-96); MEAN PLT VOLUME 7.7 fl (7.5-11.1); NEUTROPHILS 70.5 % (42.8-82.8); PLATELET COUNT 242 K/MM3 (134-434); WHITE BLOOD COUNT 8.9 K/mm3 (4.0-10.0)
[2016-10-17 08:27] LABS: ANION GAP 9 (8-16); CALCIUM 8.9 mg/dL (8.5-10.1); CO2 27 mmol/L (21-32); GLUCOSE,RANDOM 82 mg/dL (74-106)
[2016-10-17 08:29] LABS: ALK PHOS 91 U/L (45-117); BILIRUBIN,TOTAL 0.2 mg/dL (0.2-1.0); CREATININE 0.9 mg/dL (0.55-1.02); SGOT/AST 55 U/L (15-37); SGPT/ALT 33 U/L (12-78); TOT PROT 7.6 g/dl (6.4-8.2)
[2016-10-17] MEDS: LEVOFLOXACIN 250 MG IVPB 50 ML IVPB SCH (09:15)
[2016-10-17] MEDS: ENOXAPARIN NA (PORCINE) 40 MG/0.4 ML DISP.SYRIN SQ SCH (09:15)
[2016-10-17] MEDS: TIMOLOL 0.5% OPHTHALMIC SOL 5 ML BOTTLE OU SCH ×2 (09:15→21:10)
[2016-10-17] MEDS: methylPREDNISolone NA SUCC 40 MG/1 ML VIAL IVPB SCH ×2 (09:15→21:09)
[2016-10-17] MEDS: CHOLECALCIFEROL (VITAMIN D3) 1,000 UNIT TABLET (FP) PO SCH (09:16)
[2016-10-17] MEDS: VALSARTAN 160 MG TABLET (UD) PO SCH (09:16)
[2016-10-17] MEDS: ASPIRIN COATED 81 MG TABLET.EC PO SCH (09:16)
[2016-10-17] MEDS ORDERED: guaiFENesin/CODEINE 5 ML UNIT-DOSE CUPS PO PRN (10:57)
--- NOTE | 2016-10-17 10:57 | PN ---
Progress Note, Physician History of Present Illness: pulmonary alert,oob-chair,+ cough,less dyspneic - Current Medication List Current Medications: Active Medications Acetaminophen (Tylenol -) 650 mg PO Q6H PRN PRN Reason: FEVER OR PAIN Albuterol/Ipratropium (Duoneb -) 1 amp NEB Q4HPO [facility] Last Admin: 10/17/16 10:22 Dose: 1 amp Aspirin (Ecotrin -) 81 mg PO DAILY [facility] Last Admin: 10/17/16 09:16 Dose: 81 mg Atorvastatin Calcium (Lipitor -) 20 mg PO HS [facility] Last Admin: 10/16/16 21:33 Dose: 20 mg Cholecalciferol (Vitamin D3 -) 1,000 unit PO DAILY [facility] Last Admin: 10/17/16 09:16 Dose: 1,000 unit Enoxaparin Sodium (Lovenox -) 40 mg SQ DAILY [facility] Last Admin: 10/17/16 09:15 Dose: 40 mg Guaifenesin (Robitussin -) 10 ml PO Q6H PRN PRN Reason: COUGH Last Admin: 10/15/16 01:54 Dose: 10 ml Levofloxacin (Levaquin 250 Mg Premixed Ivpb -) 50 mls @ 50 mls/hr IVPB DAILY [facility] Last Admin: 10/17/16 09:15 Dose: 50 mls/hr Loratadine (Claritin -) 10 mg PO HS [facility] Last Admin: 10/16/16 21:33 Dose: 10 mg Methylprednisolone Sodium Succinate (Solu-Medrol -) 40 mg IVPB DAILY [facility] Last Admin: 10/17/16 09:15 Dose: 40 mg Timolol Maleate (Timoptic 0.5%) 1 drop OU BID [facility] Last Admin: 10/17/16 09:15 Dose: 1 drop Valsartan (Diovan -) 160 mg PO DAILY [facility] Last Admin: 10/17/16 09:16 Dose: 160 mg - Objective Vital Signs: Vital Signs Temperature 98.1 F 10/17/16 07:19 Pulse Rate 79 10/17/16 07:19 Respiratory Rate 18 10/17/16 07:21 Blood Pressure 147/85 10/17/16 07:19 O2 Sat by Pulse Oximetry (%) 96 10/17/16 07:21 Constitutional: Yes: Well Nourished, Calm Eyes: Yes: WNL HENT: Yes: WNL Neck: Yes: WNL Cardiovascular: Yes: Regular Rate and Rhythm, S1, S2 Respiratory: Yes: Rales (emilie crackles 1/3 up) Gastrointestinal: Yes: Normal Bowel Sounds, Soft Extremities: Yes: WNL Edema: No Labs: CBC, BMP 10/17/16 05:35 10/17/16 05:35 Assessment/Plan Problem List - Problems (1) Acute bronchitis Code(s): J20.9 - ACUTE BRONCHITIS, UNSPECIFIED Qualifiers: Bronchitis organism: unspecified organism Qualified Code(s): J20.9 - Acute bronchitis, unspecified (2) Community acquired bacterial pneumonia Code(s): J15.9 - UNSPECIFIED BACTERIAL PNEUMONIA (3) Hyperlipidemia Code(s): E78.5 - HYPERLIPIDEMIA, UNSPECIFIED Qualifiers: Hyperlipidemia type: pure hypercholesterolemia Qualified Code(s): E78.00 - Pure hypercholesterolemia, unspecified; E78.0 - Pure hypercholesterolemia (4) Hypertension Code(s): I10 - ESSENTIAL (PRIMARY) HYPERTENSION Qualifiers: Hypertension type: essential hypertension Qualified Code(s): I10 - Essential (primary) hypertension (5) Hypoxia Code(s): R09.02 - HYPOXEMIA (6) Thoracic aortic aneurysm Code(s): I71.2 - THORACIC AORTIC ANEURYSM, WITHOUT RUPTURE Qualifiers: Presence of rupture: without rupture Qualified Code(s): I71.2 - Thoracic aortic aneurysm, without rupture Assessment/Plan continue ABX O2 as needed Medrol Should repeat CT in 6 weeks to document resolution of changes -> difficult to determine if there a component of chronicity VTE prophylaxis Robitussin rudy PRITCHETT
[2016-10-17] MEDS ORDERED: LEVOFLOXACIN 250 MG IVPB 50 ML IVPB ONE (16:15)
--- NOTE | 2016-10-17 16:17 | PN ---
Physical Exam: SUBJECTIVE: Patient seen and examined on tele. She complains of coughing all night. She is stable ambulating to bathroom. Daughter at bedside translating. OBJECTIVE: Vital Signs Period Temp Pulse Resp BP Sys/Azar Pulse Ox Last 24 Hr 97.9 F-98.8 F 77-86 18-20 136-150/77-95 96-96 PE Neuro: alert, awake, cn 2-12intact HEENT: hearing aids Pulm: + bilateral crackles, +inspiratory wheeze, +cough +sputum production CV: s1 s2 rrr no mrg Abd: s nt nd + bs Ext: warm, no le edema Laboratory Results - last 24 hr 10/17/16 10/17/16 05:35 05:35 WBC 8.9 RBC 3.44 L Hgb 11.6 Hct 33.1 MCV 96.4 H MCHC 34.9 RDW 12.0 Plt Count 242 MPV 7.7 Neutrophils % 70.5 Lymphocytes % 19.7 D Monocytes % 8.5 Eosinophils % 0.8 D Basophils % 0.5 Sodium 139 Potassium 4.1 Chloride 103 Carbon Dioxide 27 Anion Gap 9 BUN 27 H Creatinine 0.9 Creat Clearance w eGFR > 60 Random Glucose 82 Calcium 8.9 Total Bilirubin 0.2 D AST 55 H ALT 33 Alkaline Phosphatase 91 Total Protein 7.6 Albumin 3.0 L Active Medications Generic Name Dose Route Start Last Admin Trade Name Freq PRN Reason Stop Dose Admin Acetaminophen 650 mg 10/15/16 01:23 Tylenol - PO Q6H PRN FEVER OR PAIN Albuterol/Ipratropium 1 amp 10/15/16 22:00 10/17/16 14:51 Duoneb - NEB 1 amp Q4HPO DIOGENES Administration Aspirin 81 mg 10/15/16 10:00 10/17/16 09:16 Ecotrin - PO 81 mg DAILY DIOGENES Administration Atorvastatin Calcium 20 mg 10/14/16 22:00 10/16/16 21:33 Lipitor - PO 20 mg HS DIOGENES Administration Cholecalciferol 1,000 unit 10/15/16 10:00 10/17/16 09:16 Vitamin D3 - PO 1,000 unit DAILY DIOGENES Administration Guaifenesin/Codeine Phosphate 5 ml 10/17/16 10:57 Robitussin Ac - PO QID PRN COUGH Heparin Sodium (Porcine) 5,000 unit 10/18/16 10:00 Heparin - SQ BID DIOGENES Levofloxacin 100 mls @ 100 mls/hr 10/18/16 10:00 Levaquin 500 Mg Premixed Ivpb - IVPB 10/18/16 10:59 ONCE ONE Loratadine 10 mg 10/14/16 22:00 10/16/16 21:33 Claritin - PO 10 mg HS DIOGENES Administration Methylprednisolone Sodium Succinate 40 mg 10/17/16 22:00 Solu-Medrol - IVPB BID DIOGENES Timolol Maleate 1 drop 10/14/16 22:00 10/17/16 09:15 Timoptic 0.5% OU 1 drop BID DIOGENES Administration Valsartan 160 mg 10/15/16 10:00 10/17/16 09:16 Diovan - PO 160 mg DAILY DIOGENES Administration Microbiology 10/17/16 11:00 Gram Stain - Final Sputum - Expectorated 10/17/16 11:00 Legionella Antigen - Final Urine For Antigen Detection Streptococcus pneumoniae Antigen (M - Final 10/14/16 09:47 Blood Culture - Preliminary Blood - Peripheral Venous NO GROWTH OBTAINED AFTER 72 HOURS, INCUBATION TO CONTINUE FOR 2 DAYS. 10/14/16 09:47 Blood Culture - Preliminary Blood - Peripheral Venous NO GROWTH OBTAINED AFTER 72 HOURS, INCUBATION TO CONTINUE FOR 2 DAYS. Imaging: - Chest CT 10/15/2016 bilateral upper lobe, right more than left and emilie. lower lobe right more than left atelectatic change and infiltrates, aneurysmal dilatation of the ascending aorta measuring 4.3 cm in AP dimension Assessment: 76 year old female with HTN, HLD, hearing aids, and glaucoma admitted with SOB, cough, tachycardia. Plan: 1. Severe Sepsis d/t CAP - Lactic acid wnl - Increase levaquin 500mg daily (day 3 of 7) - Increase medrol 40mg BID IV - Duonebs q4 - BC NGTD, negative urine legionella - Start musinex BID 2. HTN - Continue Valsartan 160mg 3. HLD - Lipitor daily 4. Microscopic hematuria and proteinuria - Repeat UA on dc - Will need outpt renal work up 5. 4.3cm ascending aortic aneurysm - CT surgery outpt follow up for aneurysm follow up - No surgery intervention at this time per vascular 6. DVT - Heparin sq Visit type - Emergency Visit Emergency Visit: Yes ED Registration Date: 10/16/16 Care time: The patient presented to the Emergency Department on the above date and was hospitalized for further evaluation of their emergent condition. - New Patient This patient is new to me today: Yes Date on this admission: 10/17/16 - Critical Care Critical Care patient: No
[2016-10-17] MEDS: ATORVASTATIN CA 20 MG TABLET (FP) PO SCH (21:08)
[2016-10-17] MEDS: guaiFENesin 600 MG TABLET.ER (FP) PO SCH (21:08)
[2016-10-17] MEDS: LORATADINE 10 MG TABLET PO SCH (21:09)
[2016-10-18] MEDS: ALBUTEROL SO4 2.5/IPRATROPIUM 0.5 INH SOL 3 ML VIAL.NEB. NEB SCH ×6 (02:14→22:15)
[2016-10-18 07:46] LABS: ANION GAP 9 (8-16); CALCIUM 9.3 mg/dL (8.5-10.1); CO2 29 mmol/L (21-32); GLUCOSE,RANDOM 121 mg/dL (74-106); MAGNESIUM 1.9 mg/dL (1.8-2.4)
[2016-10-18 07:48] LABS: CREATININE 0.9 mg/dL (0.55-1.02)
[2016-10-18 07:57] LABS: MCH 32.9 pg (25.7-33.7); MCHC 34.3 g/dl (32.0-36.0); MEAN CELL VOLUME 95.9 fl (80-96); MEAN PLT VOLUME 7.5 fl (7.5-11.1); PLATELET COUNT 265 K/MM3 (134-434); RDW 11.9 % (11.6-15.6); WHITE BLOOD COUNT 9.1 K/mm3 (4.0-10.0)
[2016-10-18] MEDS: TIMOLOL 0.5% OPHTHALMIC SOL 5 ML BOTTLE OU SCH ×2 (09:37→22:25)
[2016-10-18] MEDS: HEPARIN NA (PORCINE) 5,000 UNITS/ML 1ML VIAL SQ SCH ×2 (09:38→22:25)
[2016-10-18] MEDS: CHOLECALCIFEROL (VITAMIN D3) 1,000 UNIT TABLET (FP) PO SCH (09:38)
[2016-10-18] MEDS: guaiFENesin 600 MG TABLET.ER (FP) PO SCH ×2 (09:38→22:21)
[2016-10-18] MEDS: VALSARTAN 160 MG TABLET (UD) PO SCH (09:38)
[2016-10-18] MEDS: ASPIRIN COATED 81 MG TABLET.EC PO SCH (09:38)
[2016-10-18] MEDS: methylPREDNISolone NA SUCC 40 MG/1 ML VIAL IVPB SCH ×2 (09:38→22:25)
[2016-10-18] MEDS ORDERED: LEVOFLOXACIN 500 MG IVPB 100 ML IVPB ONE (10:00)
--- NOTE | 2016-10-18 11:01 | PN ---
Progress Note, Physician History of Present Illness: Productive cough and mild shortness of breath improving. Ambulating without exertional sxs. - Current Medication List Current Medications: Active Medications Acetaminophen (Tylenol -) 650 mg PO Q6H PRN PRN Reason: FEVER OR PAIN Albuterol/Ipratropium (Duoneb -) 1 amp NEB Q4HPO [facility] Last Admin: 10/18/16 09:53 Dose: 1 amp Aspirin (Ecotrin -) 81 mg PO DAILY [facility] Last Admin: 10/18/16 09:38 Dose: 81 mg Atorvastatin Calcium (Lipitor -) 20 mg PO HS [facility] Last Admin: 10/17/16 21:08 Dose: 20 mg Cholecalciferol (Vitamin D3 -) 1,000 unit PO DAILY [facility] Last Admin: 10/18/16 09:38 Dose: 1,000 unit Guaifenesin (Mucinex -) 600 mg PO BID [facility] Last Admin: 10/18/16 09:38 Dose: 600 mg Guaifenesin/Codeine Phosphate (Robitussin Ac -) 5 ml PO QID PRN PRN Reason: COUGH Last Admin: 10/17/16 22:32 Dose: 5 ml Heparin Sodium (Porcine) (Heparin -) 5,000 unit SQ BID [facility] Last Admin: 10/18/16 09:38 Dose: 5,000 unit Loratadine (Claritin -) 10 mg PO HS [facility] Last Admin: 10/17/16 21:09 Dose: 10 mg Methylprednisolone Sodium Succinate (Solu-Medrol -) 40 mg IVPB BID [facility] Last Admin: 10/18/16 09:38 Dose: 40 mg Timolol Maleate (Timoptic 0.5%) 1 drop OU BID [facility] Last Admin: 10/18/16 09:37 Dose: 1 drop Valsartan (Diovan -) 160 mg PO DAILY [facility] Last Admin: 10/18/16 09:38 Dose: 160 mg - Objective Vital Signs: Vital Signs Temperature 97.6 F 10/18/16 07:57 Pulse Rate 74 10/18/16 07:57 Respiratory Rate 20 10/18/16 07:59 Blood Pressure 138/86 10/18/16 07:57 O2 Sat by Pulse Oximetry (%) 97 10/18/16 07:59 Constitutional: Yes: No Distress, Calm Neck: Yes: Supple Cardiovascular: Yes: Regular Rate and Rhythm Respiratory: Yes: Regular, Diminished, On Nasal O2 Gastrointestinal: Yes: Normal Bowel Sounds, Soft Edema: No Labs: CBC, BMP 10/18/16 05:35 10/18/16 05:35 - ....Imaging EKG: Report Reviewed (Tele: ST) Problem List - Problems (1) Community acquired bacterial pneumonia Code(s): J15.9 - UNSPECIFIED BACTERIAL PNEUMONIA (2) Hypertension Code(s): I10 - ESSENTIAL (PRIMARY) HYPERTENSION Qualifiers: Hypertension type: essential hypertension Qualified Code(s): I10 - Essential (primary) hypertension (3) Hyperlipidemia Code(s): E78.5 - HYPERLIPIDEMIA, UNSPECIFIED Qualifiers: Hyperlipidemia type: pure hypercholesterolemia Qualified Code(s): E78.00 - Pure hypercholesterolemia, unspecified; E78.0 - Pure hypercholesterolemia (4) Acute and chronic respiratory failure with hypoxia Code(s): J96.21 - ACUTE AND CHRONIC RESPIRATORY FAILURE WITH HYPOXIA (5) Acute bronchitis Code(s): J20.9 - ACUTE BRONCHITIS, UNSPECIFIED Qualifiers: Bronchitis organism: unspecified organism Qualified Code(s): J20.9 - Acute bronchitis, unspecified (6) Thoracic aortic aneurysm Code(s): I71.2 - THORACIC AORTIC ANEURYSM, WITHOUT RUPTURE Qualifiers: Presence of rupture: without rupture Qualified Code(s): I71.2 - Thoracic aortic aneurysm, without rupture Assessment/Plan 1. Acute hypoxic respiratory failure referable to CAP, acute bronchitis, ruled out for PE 2. 4.3 cm TAA 3. HTN 4. Hyperlipidemia P 1. BD, abx course, steroid taper, O2 to maintain saO2 2. Continue ASA 81 qd, Diovan 160 qd, Lipitor 20 qhs 3. DVT prophylaxis, d/c telemetry 4. Outpatient surveillance of TAA
--- NOTE | 2016-10-18 11:22 | PN ---
Progress Note, Physician History of Present Illness: PULMONARY ALERT,LESS COUGH,LESS DYSPNEIC. - Current Medication List Current Medications: Active Medications Acetaminophen (Tylenol -) 650 mg PO Q6H PRN PRN Reason: FEVER OR PAIN Albuterol/Ipratropium (Duoneb -) 1 amp NEB Q4HPO [facility] Last Admin: 10/18/16 09:53 Dose: 1 amp Aspirin (Ecotrin -) 81 mg PO DAILY [facility] Last Admin: 10/18/16 09:38 Dose: 81 mg Atorvastatin Calcium (Lipitor -) 20 mg PO HS [facility] Last Admin: 10/17/16 21:08 Dose: 20 mg Cholecalciferol (Vitamin D3 -) 1,000 unit PO DAILY [facility] Last Admin: 10/18/16 09:38 Dose: 1,000 unit Guaifenesin (Mucinex -) 600 mg PO BID [facility] Last Admin: 10/18/16 09:38 Dose: 600 mg Guaifenesin/Codeine Phosphate (Robitussin Ac -) 5 ml PO QID PRN PRN Reason: COUGH Last Admin: 10/17/16 22:32 Dose: 5 ml Heparin Sodium (Porcine) (Heparin -) 5,000 unit SQ BID [facility] Last Admin: 10/18/16 09:38 Dose: 5,000 unit Loratadine (Claritin -) 10 mg PO HS [facility] Last Admin: 10/17/16 21:09 Dose: 10 mg Methylprednisolone Sodium Succinate (Solu-Medrol -) 40 mg IVPB BID [facility] Last Admin: 10/18/16 09:38 Dose: 40 mg Timolol Maleate (Timoptic 0.5%) 1 drop OU BID [facility] Last Admin: 10/18/16 09:37 Dose: 1 drop Valsartan (Diovan -) 160 mg PO DAILY [facility] Last Admin: 10/18/16 09:38 Dose: 160 mg - Objective Vital Signs: Vital Signs Temperature 97.6 F 10/18/16 07:57 Pulse Rate 74 10/18/16 07:57 Respiratory Rate 20 10/18/16 07:59 Blood Pressure 138/86 10/18/16 07:57 O2 Sat by Pulse Oximetry (%) 97 10/18/16 07:59 Constitutional: Yes: Well Nourished, Calm Eyes: Yes: WNL HENT: Yes: WNL Neck: Yes: WNL Cardiovascular: Yes: Regular Rate and Rhythm, S1, S2 Respiratory: Yes: Rales (BILATERAL CRACKLES) Gastrointestinal: Yes: Normal Bowel Sounds, Soft Extremities: Yes: WNL Edema: No Labs: CBC, BMP 10/18/16 05:35 10/18/16 05:35 Assessment/Plan Problem List - Problems (1) Acute bronchitis Code(s): J20.9 - ACUTE BRONCHITIS, UNSPECIFIED Qualifiers: Bronchitis organism: unspecified organism Qualified Code(s): J20.9 - Acute bronchitis, unspecified (2) Community acquired bacterial pneumonia Code(s): J15.9 - UNSPECIFIED BACTERIAL PNEUMONIA (3) Hyperlipidemia Code(s): E78.5 - HYPERLIPIDEMIA, UNSPECIFIED Qualifiers: Hyperlipidemia type: pure hypercholesterolemia Qualified Code(s): E78.00 - Pure hypercholesterolemia, unspecified; E78.0 - Pure hypercholesterolemia (4) Hypertension Code(s): I10 - ESSENTIAL (PRIMARY) HYPERTENSION Qualifiers: Hypertension type: essential hypertension Qualified Code(s): I10 - Essential (primary) hypertension (5) Hypoxia Code(s): R09.02 - HYPOXEMIA (6) Thoracic aortic aneurysm Code(s): I71.2 - THORACIC AORTIC ANEURYSM, WITHOUT RUPTURE Qualifiers: Presence of rupture: without rupture Qualified Code(s): I71.2 - Thoracic aortic aneurysm, without rupture Assessment/Plan ABX O2 as needed Medrol Should repeat CT in 6 weeks to document resolution of changes -> difficult to determine if there a component of chronicity VTE prophylaxis Robitussin ac pfts outpatient chest x-ray today check o2 sat at rest and post exercise on ra DR PRITCHETT
--- NOTE | 2016-10-18 15:33 | PN ---
Physical Exam: SUBJECTIVE: Patient seen and examined. She is oob to chair, she says she feels normal. OBJECTIVE: Vital Signs Period Temp Pulse Resp BP Sys/Azar Pulse Ox Last 24 Hr 97.6 F-98.8 F 61-102 19-20 101-144/66-94 96-97 PE Neuro: alert, awake, cn 2-12intact HEENT: hearing aids Pulm: + bilateral crackles, no wheezing, no sob CV: s1 s2 rrr no mrg Abd: s nt nd + bs Ext: warm, no le edema Laboratory Results - last 24 hr 10/18/16 10/18/16 05:35 05:35 WBC 9.1 RBC 3.76 Hgb 12.4 Hct 36.1 MCV 95.9 MCHC 34.3 RDW 11.9 Plt Count 265 MPV 7.5 Sodium 139 Potassium 4.5 Chloride 101 Carbon Dioxide 29 Anion Gap 9 BUN 21 H D Creatinine 0.9 Random Glucose 121 H D Calcium 9.3 Magnesium 1.9 Active Medications Generic Name Dose Route Start Last Admin Trade Name Freq PRN Reason Stop Dose Admin Acetaminophen 650 mg 10/15/16 01:23 Tylenol - PO Q6H PRN FEVER OR PAIN Albuterol/Ipratropium 1 amp 10/15/16 22:00 10/18/16 09:53 Duoneb - NEB 1 amp Q4HPO DIOGENES Administration Aspirin 81 mg 10/15/16 10:00 10/18/16 09:38 Ecotrin - PO 81 mg DAILY DIOGENES Administration Atorvastatin Calcium 20 mg 10/14/16 22:00 10/17/16 21:08 Lipitor - PO 20 mg HS DIOGENES Administration Cholecalciferol 1,000 unit 10/15/16 10:00 10/18/16 09:38 Vitamin D3 - PO 1,000 unit DAILY DIOGENES Administration Guaifenesin 600 mg 10/17/16 22:00 10/18/16 09:38 Mucinex - PO 600 mg BID DIOGENES Administration Guaifenesin/Codeine Phosphate 5 ml 10/17/16 10:57 10/17/16 22:32 Robitussin Ac - PO 5 ml QID PRN Administration COUGH Heparin Sodium (Porcine) 5,000 unit 10/18/16 10:00 10/18/16 09:38 Heparin - SQ 5,000 unit BID DIOGENES Administration Levofloxacin 500 mg 10/19/16 10:00 Levaquin - PO DAILY DIOGENES Loratadine 10 mg 10/14/16 22:00 10/17/16 21:09 Claritin - PO 10 mg HS DIOGENES Administration Methylprednisolone Sodium Succinate 40 mg 10/17/16 22:00 10/18/16 09:38 Solu-Medrol - IVPB 40 mg BID DIOGENES Administration Timolol Maleate 1 drop 10/14/16 22:00 10/18/16 09:37 Timoptic 0.5% OU 1 drop BID DIOGENES Administration Valsartan 160 mg 10/15/16 10:00 10/18/16 09:38 Diovan - PO 160 mg DAILY DIOGENES Administration Imaging: - Chest CT 10/15/2016 bilateral upper lobe, right more than left and emilie. lower lobe right more than left atelectatic change and infiltrates, aneurysmal dilatation of the ascending aorta measuring 4.3 cm in AP dimension Assessment: 76 year old female with HTN, HLD, hearing aids, and glaucoma admitted with SOB, cough, tachycardia. Plan: 1. Severe Sepsis d/t CAP - CXR today no acute pathology - Levaquin 500mg daily (day 4 of 7) - SoluMedrol 40mg BID, taper to PO prednisone tomorrow - Duonebs q4 - Musinex BID - Pre and post shows no supplemental 02 required 2. HTN - Continue Valsartan 160mg 3. HLD - Lipitor daily 4. Microscopic hematuria and proteinuria - Repeat UA ordered - Will need outpt renal work up 5. 4.3cm ascending aortic aneurysm - CT surgery outpt follow up for aneurysm follow up - No surgery intervention at this time per vascular 6. Lactic acidosis - Resolved 7. DVT - Heparin sq Dispo: - Home tomorrow Visit type - Emergency Visit Emergency Visit: Yes ED Registration Date: 10/16/16 Care time: The patient presented to the Emergency Department on the above date and was hospitalized for further evaluation of their emergent condition. - New Patient This patient is new to me today: No - Critical Care Critical Care patient: No
[2016-10-18 19:41] LABS: URINE APPEARANCE CLEAR; URINE BILIRUBIN NEGATIVE (NEGATIVE); URINE BLOOD 2+ (NEGATIVE); URINE COLOR LTYELLOW; URINE GLUCOSE (UA) NEGATIVE (NEGATIVE); URINE KETONE NEGATIVE (NEGATIVE); URINE LEUK ESTERASE NEGATIVE (NEGATIVE); URINE NITRITE NEGATIVE (NEGATIVE); URINE PROTEIN 1+ (NEGATIVE); URINE UROBILINOGEN NEGATIVE E.U./dl (0.2-1.0)
[2016-10-18 19:43] LABS: URINE BACTERIA RARE /hpf (NONE SEEN); URINE HYALINE CAST 1 /lpf; URINE MUCUS RARE; URINE RBC 6 /hpf (0-3); URINE WBC 4 /hpf (3-5)
[2016-10-18] MEDS: LORATADINE 10 MG TABLET PO SCH (22:21)
[2016-10-18] MEDS: ATORVASTATIN CA 20 MG TABLET (FP) PO SCH (22:21)
[2016-10-19] MEDS: ALBUTEROL SO4 2.5/IPRATROPIUM 0.5 INH SOL 3 ML VIAL.NEB. NEB SCH ×5 (02:20→17:17)
[2016-10-19] MEDS ORDERED: LEVOFLOXACIN 500 MG TABLET (FP) PO SCH (06:00)
--- NOTE | 2016-10-19 09:13 | DS ---
Physical Exam: SUBJECTIVE: Patient seen and examined. No acute events overnight, ambulating without distress in halls. Still has cough OBJECTIVE: Vital Signs Period Temp Pulse Resp BP Sys/Azar Pulse Ox Last 24 Hr 98.2 F-98.9 F 69-102 16-20 106-130/59-79 96-96 Laboratory Results - last 24 hr PE Neuro: alert, awake, cn 2-12intact HEENT: hearing aids Pulm: + bilateral crackles, no wheezing, no sob CV: s1 s2 rrr no mrg Abd: s nt nd + bs Ext: warm, no le edema 10/18/16 18:00 Urine Color Ltyellow Urine Appearance Clear Urine pH 5.0 Ur Specific [place] 1.020 Urine Protein 1+ H Urine Glucose (UA) Negative Urine Ketones Negative Urine Blood 2+ H Urine Nitrite Negative Urine Bilirubin Negative Urine Urobilinogen Negative Ur Leukocyte Esterase Negative Urine RBC 6 Urine WBC 4 Ur Epithelial Cells Rare Urine Bacteria Rare Hyaline Casts 1 Urine Mucus Rare HOSPITAL COURSE: Date of Admission:10/16/16 Date of Discharge: 10/19/16 Minutes to complete discharge: 38 Discharge Summary Reason For Visit: HYPOXIA,BRONCHITIS Current Active Problems Acute and chronic respiratory failure with hypoxia (Acute) Acute bronchitis (Acute) Bronchitis (Acute) Community acquired bacterial pneumonia (Acute) Hematuria (Acute) Hyperlipidemia (Acute) Hypertension (Acute) Hypoxia (Acute) Thoracic aortic aneurysm (Acute) Hospital Course: Initial Hospital Course: Briefly, this 76 year old Thai speaking female with h/o glaucoma, HTN, and hyperlipidemia, and hard of hearing brought here by EMS due to nasal congestion with productive cough for ~ 1 week. Imaging: - Chest CT 10/15/2016 bilateral upper lobe, right more than left and emilie. lower lobe right more than left atelectatic change and infiltrates, aneurysmal dilatation of the ascending aorta measuring 4.3 cm in AP dimension - Repeat CXR 10/18: no acute pathology Subsequent Hospital Course/Progress Note/Discharge Summary by a/p: Assessment: 76 year old female with HTN, HLD, hearing aids, and glaucoma admitted with SOB, cough, tachycardia. Plan: 1. Severe Sepsis d/t CAP - Levaquin 500mg 7 days total - s/p IV soludmedrol course - Home with Prednisone taper - Pre and post shows no supplemental 02 required 2. HTN - Continue Valsartan 160mg 3. HLD - Lipitor daily 4. Microscopic hematuria and proteinuria - Improved on repeat UA - Follow up with primary care doctor for out follow up 5. 4.3cm ascending aortic aneurysm - CT surgery outpt follow up for aneurysm follow up - No surgery intervention at this time per vascular 6. Lactic acidosis - Resolved Dispo: - Home with home care and services Condition: Stable - Instructions Diet, Activity, Other Instructions: Please return to the ED for any new, persistent, or worsening symptoms. Follow up with your PCP in 1 week Continue antibiotics as directed and until completed Complete prednisone steroid taper as directed Follow up with Dr. Brown in [address] scan of your chest A referral has been made to a Cardio Thoracic surgeon you will need to monitor the size of your ascending aortic aneurysm 6 months Referrals: Sanots Brown MD [Staff Physician] - Jorge A Reeves MD [Staff Physician] - Herminio Nash MD [Staff Physician] - STAFF,NOT ON [Primary Care Provider] - Timothy Navarro MD [Staff Physician] - Disposition: VNS/HOME HEALTH CARE - Home Medications Comprehensive Discharge Medication List: Ambulatory Orders Aspirin Coated [Ecotrin -] 81 mg PO DAILY 10/14/16 Cholecalciferol (Vitamin D3) [Vitamin D3 -] 1,000 unit PO DAILY 10/14/16 Loratadine [Claritin] 10 mg PO HS 10/14/16 Sennosides [Senna] 2 tab PO HS PRN 10/14/16 Simvastatin 40 mg PO HS 10/14/16 Timolol 0.5% [Timoptic 0.5%] 1 drop OU BID 10/14/16 Valsartan [Diovan] 160 mg PO DAILY 10/14/16 Levofloxacin [Levaquin -] 500 mg PO DAILY #2 tablet 10/19/16 Prednisone 10 mg PO DAILY #26 tablet 10/19/16 This patient is new to me today: No Emergency Visit: Yes ED Registration Date: 10/16/16 Care time: The patient presented to the Emergency Department on the above date and was hospitalized for further evaluation of their emergent condition. Critical Care patient: No - Discharge Referral Referred to [facility] No
[2016-10-19] MEDS: VALSARTAN 160 MG TABLET (UD) PO SCH (09:46)
[2016-10-19] MEDS: ASPIRIN COATED 81 MG TABLET.EC PO SCH (09:46)
[2016-10-19] MEDS: guaiFENesin 600 MG TABLET.ER (FP) PO SCH (09:46)
[2016-10-19] MEDS: HEPARIN NA (PORCINE) 5,000 UNITS/ML 1ML VIAL SQ SCH (09:47)
[2016-10-19] MEDS: CHOLECALCIFEROL (VITAMIN D3) 1,000 UNIT TABLET (FP) PO SCH (09:47)
[2016-10-19] MEDS ORDERED: PT OWN MED DRAWER 7, Y5N ONE (09:50)
[2016-10-19] MEDS: TIMOLOL 0.5% OPHTHALMIC SOL 5 ML BOTTLE OU SCH (09:52)
[2016-10-19] MEDS ORDERED: predniSONE 20 MG TABLET (UD) PO SCH (10:00)
--- NOTE | 2016-10-19 12:53 | PN ---
Progress Note, Physician Chief Complaint: Events noted Complains of productive cough but improved History of Present Illness: Patient was seen and examined. Awake and alert. Chart was reviewed Denies chest pain, SOB or palpitations - Current Medication List Current Medications: Active Medications Acetaminophen (Tylenol -) 650 mg PO Q6H PRN PRN Reason: FEVER OR PAIN Albuterol/Ipratropium (Duoneb -) 1 amp NEB Q4HPO [facility] Last Admin: 10/19/16 10:25 Dose: 1 amp Aspirin (Ecotrin -) 81 mg PO DAILY [facility] Last Admin: 10/19/16 09:46 Dose: 81 mg Atorvastatin Calcium (Lipitor -) 20 mg PO HS [facility] Last Admin: 10/18/16 22:21 Dose: 20 mg Cholecalciferol (Vitamin D3 -) 1,000 unit PO DAILY [facility] Last Admin: 10/19/16 09:47 Dose: 1,000 unit Guaifenesin (Mucinex -) 600 mg PO BID [facility] Last Admin: 10/19/16 09:46 Dose: 600 mg Guaifenesin/Codeine Phosphate (Robitussin Ac -) 5 ml PO QID PRN PRN Reason: COUGH Last Admin: 10/17/16 22:32 Dose: 5 ml Heparin Sodium (Porcine) (Heparin -) 5,000 unit SQ BID [facility] Last Admin: 10/19/16 09:47 Dose: 5,000 unit Levofloxacin (Levaquin -) 500 mg PO DAILY@0600 [facility] Last Admin: 10/19/16 05:17 Dose: 500 mg Loratadine (Claritin -) 10 mg PO HS [facility] Last Admin: 10/18/16 22:21 Dose: 10 mg Prednisone (Deltasone -) 40 mg PO DAILY [facility] Last Admin: 10/19/16 09:46 Dose: 40 mg Timolol Maleate (Timoptic 0.5%) 1 drop OU BID [facility] Last Admin: 10/19/16 09:52 Dose: 1 drop Valsartan (Diovan -) 160 mg PO DAILY [facility] Last Admin: 10/19/16 09:46 Dose: 160 mg - Objective Vital Signs: Vital Signs Temperature 98 F 10/19/16 10:00 Pulse Rate 80 10/19/16 10:00 Respiratory Rate 18 10/19/16 10:00 Blood Pressure 118/70 10/19/16 10:00 O2 Sat by Pulse Oximetry (%) 97 10/19/16 09:00 Neck: Yes: Supple Cardiovascular: Yes: Regular Rate and Rhythm, S1, S2 Respiratory: Yes: Diminished Gastrointestinal: Yes: Normal Bowel Sounds, Soft. No: Tenderness Edema: No Additional Findings/Remarks: - Review of Systems Constitutional: denies: Chills, Fever Cardiovascular: denies: Palpitations. denies: Chest Pain, (+) Shortness of Breath - improved Respiratory: reports: Cough. denies: Hemoptysis, Orthopnea, PND, (+) SOB, SOB on Exertion, (-) Wheezing Gastrointestinal: denies: Abdominal Pain, Constipation, Diarrhea, Melena, Nausea , Rectal Bleeding, Vomiting Musculoskeletal: denies: Joint Pain Neurological: denies: Dizziness, Headache, Seizure, Syncope, Unsteady Gait, Weakness Labs: CBC, BMP 10/18/16 05:35 10/18/16 05:35 Problem List - Problems (1) Acute and chronic respiratory failure with hypoxia Code(s): J96.21 - ACUTE AND CHRONIC RESPIRATORY FAILURE WITH HYPOXIA (2) Acute bronchitis Code(s): J20.9 - ACUTE BRONCHITIS, UNSPECIFIED Qualifiers: Bronchitis organism: unspecified organism Qualified Code(s): J20.9 - Acute bronchitis, unspecified (3) Community acquired bacterial pneumonia Code(s): J15.9 - UNSPECIFIED BACTERIAL PNEUMONIA (4) Hyperlipidemia Code(s): E78.5 - HYPERLIPIDEMIA, UNSPECIFIED Qualifiers: Hyperlipidemia type: pure hypercholesterolemia Qualified Code(s): E78.00 - Pure hypercholesterolemia, unspecified; E78.0 - Pure hypercholesterolemia (5) Hypertension Code(s): I10 - ESSENTIAL (PRIMARY) HYPERTENSION Qualifiers: Hypertension type: essential hypertension Qualified Code(s): I10 - Essential (primary) hypertension (6) Thoracic aortic aneurysm Code(s): I71.2 - THORACIC AORTIC ANEURYSM, WITHOUT RUPTURE Qualifiers: Presence of rupture: without rupture Qualified Code(s): I71.2 - Thoracic aortic aneurysm, without rupture Assessment/Plan 1. Acute hypoxic respiratory failure referable to community acquired pneumonia vs. acute bronchitis 2. 4.3 cm TAA 3. HTN 4. Hyperlipidemia PLAN: 1. Bronchodilator, antibiotic course, steroid taper and O2 to maintain saO2 2. Continue ASA 81 mg qd, Diovan 160 mg qd and Lipitor 20 mg qhs 3. DVT prophylaxis 4. Outpatient surveillance of TAA Patient was advised to follow up in office. PMD: Michael Gastelum MD in [place] Héctor Gastelum MD
[2016-10-19 15:21] VITALS: PULSE 81
[2016-10-19 18:13] VITALS: BP 112/70; TEMP 98.1
== END 2016-10-19 19:38 | disposition home health service (06) | DRG 871 ==
LOC: JER 07:59 → JERBED 14:37 → INTOOBSV 14:37 → UNDOADMOB 14:37 → JERBED 15:21 → J4W 22:14 → OBSVTOIN 10-16 14:06
PROVIDERS: ADMIT Internal Medicine; ATTEND Nurse Practitioner Acute Care
DX: A41.89 Other specified sepsis (principal); J96.01 Acute respiratory failure with hypoxia; J15.8 Pneumonia due to other specified bacteria; E87.2 Acidosis; I10 Essential (primary) hypertension; E78.5 Hyperlipidemia, unspecified; H40.9 Unspecified glaucoma; H91.8X2 Other specified hearing loss, left ear; R31.9 Hematuria, unspecified; I71.2 Thoracic aortic aneurysm, without rupture; J20.9 Acute bronchitis, unspecified; R00.0 Tachycardia, unspecified; R65.20 Severe sepsis without septic shock
CPT/HCPCS: 36415; 71010-TC; 71020-TC; 71260-TC; 71275-TC; 80048; 80053; 81003; 81015; 82550; 83605; 83735; 83880; 84484; 85025; 85027; 85379; 87040; 87070; 87086; 87205; 87430; 87899; 93005; 93010; 94640; 94761; 99285-25; G0378; J1644